=== PATIENT | female | born 1975 | race Caucasian/White ===

== ENCOUNTER 2018-10-10 02:04 | Emergency (ER) | payer SELFPAY ==
[~2018-10-10] VITALS: Ht 182.9 cm; Wt 81.6 kg
[2018-10-10] MEDS ORDERED: SODIUM CHLORIDE 0.9% 500ML 500 ML ONE (03:19)
[2018-10-10] MEDS ORDERED: CLINDAMYCIN 300MG 50 ML IV ONE (03:19)
[2018-10-10] MEDS ORDERED: KETOROLAC TROMETHAMINE 30 MG/ML VIAL ONE (03:19)
[2018-10-10] MEDS ORDERED: CLINDAMYCIN 600MG / 50ML 50 ML IV ONE (03:19)
[2018-10-10] MEDS ORDERED: LIDOCAINE HCL 2% LOCAL 20 ML VIAL ONE (03:24)
[2018-10-10] MEDS: CLINDAMYCIN PHOS 900MG/ 50ML 50 ML IV SCH (03:27)
[2018-10-10] MEDS: SODIUM CHLORIDE 0.9% 500ML 500 ML IV ONE (03:27)
[2018-10-10] MEDS: KETOROLAC TROMETHAMINE 30 MG/ML VIAL IV STA (03:27)
[2018-10-10] MEDS: HYDROCODONE/APAP 5MG-325MG TAB PO ONE (04:30)
[2018-10-10] MEDS ORDERED: HYDROCODONE/APAP 5MG-325MG TAB ONE (04:32)
--- NOTE | 2018-10-10 04:47 | Diagnostic Imaging Report ---
FOREARM 2 VIEW LT -HOPD HISTORY: Pain. COMPARISON: None available. FINDINGS: Bones: No acute displaced fracture. Osseous alignment is within normal limits. Joints: The joint spaces are well-maintained. Soft tissues: Soft tissue swelling and subcutaneous emphysema in the ventral lateral soft tissues of the proximal forearm. IMPRESSION: No acute radiographic osseous abnormality. Soft tissue swelling and subcutaneous emphysema in the ventral lateral soft tissues of the proximal forearm. No radio opaque foreign body. Signed by: Hank Quesada DO on 10/10/2018 4:43 AM
== END 2018-10-10 06:21 | disposition home or self-care (01) ==
LOC: FSED 02:04
DX: M79.632 Pain in left forearm (principal); L02.414 Cutaneous abscess of left upper limb; F17.210 Nicotine dependence, cigarettes, uncomplicated
CPT/HCPCS: 10061; 73090; 80053; 80307; 81003; 85025; 99284; J1885; J2001; J7040; 10060